=== PATIENT | male | born 2000 | race Hispanic/Latino ===

== ENCOUNTER 2023-01-26 15:03 | Emergency (ER) | payer OTHER, SELFPAY ==
[2023-01-26 15:27] VITALS: BP 135/80; PULSE 100; RESP 18; TEMP 36.8; O2SAT 100
--- NOTE | 2023-01-26 16:25 | ED.SKABFB ---
HPI - Skin/Abscess/Foreign Bdy General Chief complaint: Skin/Abscess/Foreign Body Stated complaint: rash Time Seen by Provider: 01/26/23 16:04 History of Present Illness HPI narrative: Patient is a 22-year-old male here for evaluation of diffuse pruritic rash x3 days. Patient was seen at outside hospital and was told to take Benadryl as needed but states that it is not helping. Last took 25 mg Benadryl 4 hours prior to arrival. States the rash has spread to his upper and lower extremities. He denies any systemic symptoms. He he did use a new laundry detergent but denies any new medicines. No chest tightness or difficulty breathing, sore throat, cough or congestion. Related Data Allergies Allergy/AdvReac Type Severity Reaction Status Date / Time No Known Allergies Allergy Verified 01/26/23 15:25 Review of Systems Review of Systems: Gen.: Denies fevers or chills Eyes: Denies eye pain or visual change ENT: Denies congestion Respiratory: Denies shortness of breath or cough CV: Denies chest pain or palpitations GI: Denies abdominal pain nausea, emesis or diarrhea denies burning, urgency, frequency or hematuria Musculoskeletal: Denies back pain or muscle pain Neuro: Denies numbness, tingling, weakness or focal weakness Skin: Reports rash Except as documented, all other systems reviewed and negative Exam Narrative: APPEARANCE: Well appearing, no pain in distress, well-nourished. Head: Normocephalic and atraumatic. EYES: PERRLA/EOMI, conjunctivae clear NOSE: No nasal drainage EARS: External ear normal in appearance THROAT: Oropharynx is clear. Mucous membranes are moist. NECK: Supple. No adenopathy, no masses. RESPIRATORY: Airway patent, respirations nonlabored. Clear to auscultation bilaterally, no rales, rhonchi, wheezing. CARDIOVASCULAR: Regular rate and rhythm without murmurs, rubs, or gallops. ABDOMINAL: Normoactive bowel sounds. Soft, nontender, nondistended. No rebound tenderness or guarding. MUSCULOSKELETAL: Extremities are warm and well-perfused. Moves all extremities well. No edema. NEURO: Normal speech. No focal neurologic deficits. SKIN: There is an erythematous maculopapular rash to the trunk, arms and legs and back PSYCHIATRIC: Normal affect/mood.. Course Vital Signs Vital signs: Vital Signs Temperature 98.2 F 01/26/23 15:27 Pulse Rate 100 01/26/23 15:27 Respiratory Rate 18 01/26/23 15:27 Blood Pressure 135/80 01/26/23 15:27 Pulse Oximetry 100 01/26/23 15:27 Oxygen Delivery Room Air 01/26/23 15:27 Temperature 98.2 F 01/26/23 15:27 Pulse Rate 86 01/26/23 18:20 Respiratory Rate 18 01/26/23 18:20 Blood Pressure 135/80 01/26/23 15:27 Pulse Oximetry 99 01/26/23 18:20 Oxygen Delivery Room Air 01/26/23 15:27 MDM - Skin/Abscess/Foreign Bdy MDM Narrative Medical decision making narrative: 22-year-old male here for evaluation of diffuse erythematous rash that is pruritic. Patient is nontoxic in appearance and has normal vital signs. He has no other symptoms like sore throat or congestion to suggest mono or strep. No systemic symptoms to suggest SJS or TENS. Patient feeling improved after steroids and Pepcid in the ED, he has been taking Benadryl at home and encouraged him to do so. He has been using a new laundry detergent which I encouraged him to stop. He will be provided with Derm follow-up if his rash persists and sent home with steroids and Pepcid. We discussed signs and symptoms of anaphylaxis and need to return to the ED and he voiced understanding. Discharge Plan Discharge Clinical Impression: Contact dermatitis Patient Disposition: Home, Self-Care Condition: Stable Instructions: Antibiotic Form, Dermatitis (ED) Additional Instructions: Please take the prednisone, Pepcid and Benadryl as directed. Return to emergency department for tightness in the neck or throat or shortness of breath. If your rash persists, contact distinctive
[2023-01-26] MEDS: FAMOTIDINE 20 MG TABLET 40 MG PO (16:30)
[2023-01-26 18:20] VITALS: PULSE 86; RESP 18; O2SAT 99
== END 2023-01-26 18:21 | disposition home or self-care (01) ==
PROVIDERS: Emergency Provider Physician Assistant
DX: L25.9 Unspecified contact dermatitis, unspecified cause (principal)
CPT/HCPCS: 96372; 99283; A9270; J1100